=== PATIENT | female | born 1995 | race Two or more races ===

== ENCOUNTER 2018-01-15 15:57 | Emergency (ER) | payer OTHER ==
[~2018-01-15] VITALS: Ht 167.6 cm; Wt 85.7 kg
[~2018-01-15 15:57] MED LIST: PRENATAL TABLE1 EAC1 PO
== END 2018-01-15 23:07 | disposition home or self-care (01) ==
LOC: ER 15:57
DX: O26.893 Other specified pregnancy related conditions, third trimester (principal); R51 Headache; Z34.01 Encounter for supervision of normal first pregnancy, first trimester

== ENCOUNTER 2018-02-03 09:30 | Inpatient (IN) | payer OTHER ==
[~2018-02-03] VITALS: Ht 170.2 cm; Wt 2.7 kg
[2018-02-06] MEDS ORDERED: NORVASC5 MG (13:18)
[2018-02-10] MEDS ORDERED: MAXFE CAPLET1 EACH PO (14:57)
== END 2018-02-10 16:11 | disposition home or self-care (01) | DRG 766 ==
LOC: SURG-SUITE 02-06 05:25 → O/R 02-06 05:25 → OB/GYN 02-06 13:14 → SURG-SUITE 02-06 14:27
PROVIDERS: Specialist
PROC: 0UT70ZZ Resection of Bilateral Fallopian Tubes, Open Approach (ICD-10-PCS; 2018-02-06)
PROC: 0UB90ZZ Excision of Uterus, Open Approach (ICD-10-PCS; 2018-02-06)
PROC: 4A1HXCZ Monitoring of Products of Conception, Cardiac Rate, External Approach (ICD-10-PCS; 2018-02-06)
PROC: 10D00Z1 Extraction of Products of Conception, Low, Open Approach (ICD-10-PCS; principal; 2018-02-06 09:00)
DX: O34.211 Maternal care for low transverse scar from previous cesarean delivery (principal); Z37.0 Single live birth; Z30.2 Encounter for sterilization; Z3A.38 38 weeks gestation of pregnancy; Z64.1 Problems related to multiparity; O34.13 Maternal care for benign tumor of corpus uteri, third trimester; D25.2 Subserosal leiomyoma of uterus

== ENCOUNTER → 2023-02-18 09:59 | Outpatient (CLI) | payer OTHER ==
[~2023-02-18 09:59] MED LIST changes: +MAXFE CAPLET1 EACH PO; +NORVASC5 MG
== END | disposition home or self-care (01) ==
LOC: LAB 09:59
PROVIDERS: ATTEND General Practice
DX: N39.0 Urinary tract infection, site not specified (principal); Z11.3 Encounter for screening for infections with a predominantly sexual mode of transmission; E03.9 Hypothyroidism, unspecified; R73.09 Other abnormal glucose; Z11.1 Encounter for screening for respiratory tuberculosis; Z11.4 Encounter for screening for human immunodeficiency virus [HIV]; Z12.4 Encounter for screening for malignant neoplasm of cervix; Z12.11 Encounter for screening for malignant neoplasm of colon; Z13.0 Encounter for screening for diseases of the blood and blood-forming organs and certain disorders involving the immune mechanism; Z13.1 Encounter for screening for diabetes mellitus; Z13.29 Encounter for screening for other suspected endocrine disorder; Z13.228 Encounter for screening for other metabolic disorders; E78.89 Other lipoprotein metabolism disorders

== ENCOUNTER 2024-11-24 22:56 | Emergency (ER) | payer OTHER ==
[~2024-11-24] VITALS: Ht 170.2 cm; Wt 83.9 kg
[2024-11-24 23:08] VITALS: BP 122/87; O2SAT 98
[2024-11-25] MEDS ORDERED: KETOROLAC TROMETHAMINE 60 MG VIAL IM STA (01:00)
[2024-11-25 01:08] LABS: HEMATOCRIT 33.7 % (36.0-45.00); MEAN CELL VOLUME 65.6 fL (80.00-100.00); MEAN CORPUSCULAR HEMOGLOBIN 21.4 pg (27.00-32.0); MEAN CORPUSCULAR HGB CONC 32.5 g/dl (32.0-36.0); PLATELET COUNT 436 K/uL (150-450); RED BLOOD COUNT 5.14 M/uL (4.00-6.00); RED CELL DISTRIBUTION WIDTH 18.3 % (11.5-14.5)
[2024-11-25] MEDS ORDERED: KETOROLAC TROMETHAMINE 60 MG VIAL IM ONE (01:09)
[2024-11-25 01:19] LABS: INR 1.03; PARTIAL THROMBOPLASTIN TIME 29.1 SECONDS (22.0-34.0); PROTHROMBIN TIME 11.2 SECONDS (9.0-11.5)
[2024-11-25] MEDS ORDERED: ANUSOL-HC25 MG RECTAL (01:44)
== END 2024-11-25 01:58 ==
LOC: ER 22:59
PROVIDERS: General Practice
DX: K64.8 Other hemorrhoids (principal); D64.9 Anemia, unspecified